=== PATIENT | male | born 1980 | race African-American/Black ===

== ENCOUNTER 2018-10-15 02:48 | Emergency (ER) | payer MEDICAID ==
[~2018-10-15] VITALS: Ht 167.6 cm; Wt 81.8 kg
[2018-10-15] MEDS ORDERED: AMLO2.5T4 PO (03:03)
[2018-10-15] MEDS ORDERED: HYDROGEN PEROXIDE 118 ML SOLUTION TP ONE (04:15)
[2018-10-15 04:30] VITALS: BP 131/75
== END 2018-10-15 05:00 | disposition home or self-care (01) ==
LOC: EMS 02:53
DX: H61.23 Impacted cerumen, bilateral (principal); I10 Essential (primary) hypertension; F12.90 Cannabis use, unspecified, uncomplicated
CPT/HCPCS: 69209